=== PATIENT | male | born 1970 | race Hispanic/Latino ===

== ENCOUNTER 2023-06-30 19:41 | Emergency (ER) | payer OTHER ==
[~2023-06-30] VITALS: Ht 172.7 cm; Wt 72.6 kg
[2023-06-30] MEDS ORDERED: CITRATE OF MAG296 ML PO (20:18)
[2023-06-30] MEDS ORDERED: OMEPRAZOLE20 MG PO (20:18)
[2023-06-30] MEDS ORDERED: MIRALAX17 GM PO (20:18)
[2023-06-30 20:21] LABS: BILIRUBIN, URINE NEGATIVE (negative); BLOOD/HGB, URINE NEGATIVE (Negative); KETONE, URINE NEGATIVE (Negative); LEUK ESTERASE, URINE NEGATIVE (negative); MCH 27.1 (27-36); NITRITE, URINE NEGATIVE (negative)
[2023-06-30 20:23] LABS: BASOPHILS 0.8 % (0-2); HEMATOCRIT 34.7 % (35.0-50.0); HEMOGLOBIN 11.2 g/dL (12.0-18.0); LYMPHOCYTES 26.2 % (24-44); MCHC 32.2 g/dl (30-36); MCV 84.3 fl (81-99); MONOCYTES 7.3 % (0-12); NEUTROPHILS 62.7 % (39-80); PLATELET COUNT 477 K/uL (140-440); RBC 4.12 M/ul (4.3-5.7); RDW 14.6 (10.5-15.0)
[2023-06-30 20:32] LABS: ALBUMIN 3.5 g/dL (3.4-5.0); ALBUMIN/GLOBULIN RATIO 0.8 (1.1-2.4); ANION GAP 14.3 (7-21); BILIRUBIN, TOTAL 0.2 ng/dL (0.2-1.0); BUN/CREATININE RATIO 11.11 (6.0-28.6); CALCIUM 8.9 mg/dL (8.5-10.1); CREATININE, SERUM 0.99 mg/dL (0.70-1.30); POTASSIUM 4.3 mmol/L (3.5-5.1); PROTEIN, TOTAL 7.9 g/dL (6.4-8.2)
[2023-06-30 20:56] VITALS: BP 116/80
== END 2023-06-30 20:57 | disposition home or self-care (01) ==
LOC: ED 19:41
PROVIDERS: Internal Medicine
DX: R10.9 Unspecified abdominal pain (principal); D64.9 Anemia, unspecified; Z88.8 Allergy status to other drugs, medicaments and biological substances; Z79.899 Other long term (current) drug therapy
CPT/HCPCS: 36415; 80053; 81003; 85025